=== PATIENT | male | born 1990 | race African-American/Black ===

== ENCOUNTER 2018-04-06 21:09 | Emergency (ER) | payer OTHER ==
--- NOTE | 2018-04-06 22:07 | XR ---
EXAMINATION TYPE: XR ankle complete LT DATE OF EXAM: 04/06/2018 CLINICAL HISTORY: Left ankle pain after fall injury today. TECHNIQUE: Frontal, lateral and oblique images of the left ankle are obtained. COMPARISON: None. FINDINGS: There is no acute fracture/dislocation evident in the left ankle. Tiny superior calcaneal spur is incidentally seen. The ankle mortise appears within normal limits. The overlying soft tissue appears unremarkable. IMPRESSION: There is no acute fracture or dislocation in the left ankle.
--- NOTE | 2018-04-06 22:54 | ED ---
Lower Extremity Injury HPI - General Chief Complaint: Extremity Injury, Lower Stated Complaint: [facility] left ankle injury Time Seen by Provider: 04/06/18 22:28 Source: patient, family Mode of arrival: ambulatory Limitations: no limitations - History of Present Illness MD Complaint: ankle injury -: hour(s) Injury: Ankle: Left Type of Injury: inversion Place: work Severity: mild Improves With: nothing Worsens With: weight bearing Context: walking - Related Data Previous Rx's Medication Instructions Recorded Ibuprofen 800 mg PO TID #20 tablet 04/06/18 Allergies Allergy/AdvReac Type Severity Reaction Status Date / Time No Known Allergies Allergy Verified 04/06/18 23:04 Review of Systems ROS Statement: Those systems with pertinent positive or pertinent negative responses have been documented in the HPI. ROS Other: All systems not noted in ROS Statement are negative. Constitutional: Denies: fever, chills, weakness Musculoskeletal: Reports: as per HPI, arthralgia Past Medical History Past Medical History: No Reported History History of Any Multi-Drug Resistant Organisms: None Reported Additional Past Surgical History / Comment(s): chest tube Past Psychological History: No Psychological Hx Reported Smoking Status: Current every day smoker Past Alcohol Use History: None Reported Past Drug Use History: None Reported General Exam Limitations: no limitations General appearance: alert, in no apparent distress Left Knee exam: Present: normal inspection, full ROM. Absent: tenderness, swelling Lower Leg exam: Present: normal inspection, full ROM. Absent: tenderness, swelling Ankle exam: Present: normal inspection, full ROM, tenderness. Absent: swelling , abrasion, laceration, ecchymosis, deformity, dislocation Foot/Toe exam: Present: normal inspection, full ROM. Absent: tenderness, swelling Neurovascular tendon exam: Present: no vascular compromise Gait: observed and normal Course Vital Signs 04/06/18 04/07/18 21:47 00:37 Temperature 98.3 F 97.7 F Pulse Rate 81 78 Respiratory 20 18 Rate Blood Pressure 146/88 158/80 O2 Sat by Pulse 99 98 Oximetry Disposition Clinical Impression: Ankle sprain Disposition: HOME SELF-CARE Condition: Good Instructions (If sedation given, give patient instructions): Ankle Sprain (ED) Prescriptions: Ibuprofen 800 mg PO TID #20 tablet Is patient prescribed a controlled substance at d/c from ED?: No Referrals: None,Stated [Primary Care Provider] - 1-2 days
[2018-04-07] MEDS ORDERED: IBUPROFEN 400 MG TAB PO STA
[2018-04-07 00:38] VITALS: BP 158/80; PULSE 78; RESP 18; TEMP 97.7
== END 2018-04-07 00:38 | disposition home or self-care (01) ==
LOC: EC 21:09
DX: S93.401A Sprain of unspecified ligament of right ankle, initial encounter (principal); F17.200 Nicotine dependence, unspecified, uncomplicated; W01.0XXA Fall on same level from slipping, tripping and stumbling without subsequent striking against object, initial encounter; Y93.01 Activity, walking, marching and hiking; Y92.69 Other specified industrial and construction area as the place of occurrence of the external cause; Y99.0 Civilian activity done for income or pay
CPT/HCPCS: 99283

== ENCOUNTER → 2018-04-08 | Outpatient (CLI) | payer OTHER ==
--- NOTE | 2018-04-08 13:46 | XR ---
Left knee HISTORY: Trauma and pain 3 views of the left knee Bone mineralization, joint spaces and alignment are maintained. Suprapatellar increased density may b e indicate joint effusion. Ossific density present within the distal patellar tendon is well-corticat ed and not felt likely to be acute. IMPRESSION: No acute fracture or dislocation.
--- NOTE | 2018-04-08 13:49 | XR ---
Left foot HISTORY: Trauma and pain 3 views of the left foot Bone mineralization, joint spaces and alignment are maintained. Some spurring suspected tibiotalar sharmila int. Enthesophyte present at the insertion of the Achilles tendon. IMPRESSION: No fracture or dislocation.
== END | disposition home or self-care (01) ==
LOC: RADXRMAIN 13:02
PROVIDERS: ATTEND Emergency Medicine
DX: S83.92XA Sprain of unspecified site of left knee, initial encounter (principal); S93.602A Unspecified sprain of left foot, initial encounter

== ENCOUNTER → 2018-04-13 | Outpatient (CLI) | payer OTHER ==
--- NOTE | 2018-04-13 15:17 | XR ---
Left ankle HISTORY: Pain for 1 week, trauma 04/06/2017 3 views of the left ankle correlated to prior exam 04/06/2017 There is no interval change. Spurring present at the tibiotalar joint consistent with osteoarthritis. IMPRESSION: No radiographically apparent fracture or dislocation, follow-up as indicated. Ankle MRI m ay be of benefit.
== END | disposition home or self-care (01) ==
LOC: RADXRMAIN 14:46
PROVIDERS: ATTEND Emergency Medicine
DX: S93.402D Sprain of unspecified ligament of left ankle, subsequent encounter (principal)

== ENCOUNTER → 2018-04-15 | Outpatient (CLI) | payer OTHER ==
--- NOTE | 2018-04-17 09:35 | MR ---
MR left ankle HISTORY: Sprain of ligament left ankle, pain and swelling Multiplanar multisequence imaging through the left ankle. Correlation plain film 04/13/2018 Mild osteoarthritic changes noted, there is spurring at the tibiotalar joint. Small ankle joint effus ion is present. Plantar aponeurosis, Achilles tendon are intact. Bone marrow signal is maintained. Th ere is no plaque peroneal longus and brevis tendons, flexor and extensor tendons are intact. Some flu id present along the tibialis posterior tendon compatible with tenosynovitis. Subcutaneous edema pres ent along the dorsum of foot laterally and at the level of the ankle. No evident ligamentous disrupti on. No evident tarsal coalition. There is some slight thickening of the superomedial spring ligament with intermediate signal which could possibly represent chronic versus low-grade sprain, coronal prot on density image 8, axial proton density image 19. The peroneal muscles show some minimal patchy incr eased density possibly related to mild strain or reactive to altered biomechanics. IMPRESSION: Soft tissue swelling. Mild osteoarthritic change at the anterior ankle joint could contri bute to some mechanical symptoms of anterior impingement. Findings in the spring ligament as describe d. Additional findings above.
== END ==
LOC: RADMRIMAIN 19:09
PROVIDERS: ATTEND Emergency Medicine
DX: M19.072 Primary osteoarthritis, left ankle and foot (principal)

== ENCOUNTER 2019-01-07 16:46 | Emergency (ER) | payer BC, OTHER ==
[2019-01-07 17:01] VITALS: TEMP 98.3
[2019-01-07] MEDS ORDERED: DEXAMETHASONE SOD PHOSPHATE 10 MG/ML 1 ML VIAL IV STA (17:23)
[2019-01-07] MEDS ORDERED: KETOROLAC 30 MG/ML 1 ML VIAL IVP STA (17:23)
[2019-01-07] MEDS ORDERED: AMPICILLIN-SULBACTAM 3 GM in SODIUM CHLORIDE 0.9% 100 ML IVPB STA (17:23)
[2019-01-07] MEDS ORDERED: SODIUM CHLORIDE 0.9% 1,000 ML IV STA (17:23)
--- NOTE | 2019-01-07 17:25 | ED ---
Headache HPI - General Chief Complaint: Headache Stated Complaint: Headache, chills Time Seen by Provider: 01/07/19 17:02 Source: RN notes reviewed, old records reviewed Mode of arrival: ambulatory Limitations: no limitations - History of Present Illness Initial Comments: This is a 28-year-old male the ER for evaluation patient resents left-sided facial swelling and pain after recent tooth extraction. Occasional fevers and chills no nausea vomiting and also complaining of headache. Patient has no ear pain. No significant history of similar complaint. No other prior history of dental infection and facial infections. Patient denying pain currently. He is on current antibiotics Complaint: headache, other (sinus pain, recent tooth extraction) -: hour(s) Onset Description: gradual Location: other (maxillary) Severity: moderate Severity scale (1-10): 4 Consistency: constant Improves With: nothing Worsens With: none Associated Symptoms: fever Other Symptoms: other (no NV) Treatments Prior to Arrival: none - Related Data Previous Rx's Medication Instructions Recorded Ibuprofen 800 mg PO TID #20 tablet 04/06/18 Amoxic-Pot Clav 875-125Mg 1 tab PO Q12HR #28 tablet 01/07/19 [Augmentin 875-125] Allergies Allergy/AdvReac Type Severity Reaction Status Date / Time No Known Allergies Allergy Verified 01/07/19 17:01 Review of Systems ROS Statement: Those systems with pertinent positive or pertinent negative responses have been documented in the HPI. ROS Other: All systems not noted in ROS Statement are negative. Past Medical History Past Medical History: Hypertension History of Any Multi-Drug Resistant Organisms: None Reported Additional Past Surgical History / Comment(s): chest tube Past Psychological History: No Psychological Hx Reported Smoking Status: Current every day smoker Past Alcohol Use History: None Reported Past Drug Use History: Marijuana General Exam Limitations: no limitations General appearance: alert, in no apparent distress Head exam: Present: atraumatic, normocephalic, normal inspection Eye exam: Present: normal appearance, PERRL, EOMI. Absent: scleral icterus, conjunctival injection, periorbital swelling ENT exam: Present: normal exam, normal oropharynx (maxillary sinus tenderness), mucous membranes moist Neck exam: Present: normal inspection. Absent: tenderness, meningismus, lymphadenopathy Respiratory exam: Present: normal lung sounds bilaterally. Absent: respiratory distress, wheezes, rales, rhonchi, stridor Cardiovascular Exam: Present: regular rate, normal rhythm, normal heart sounds. Absent: systolic murmur, diastolic murmur, rubs, gallop, clicks GI/Abdominal exam: Present: soft, normal bowel sounds. Absent: distended, tenderness, guarding, rebound, rigid Extremities exam: Present: normal inspection, full ROM, normal capillary refill. Absent: tenderness, pedal edema, joint swelling, calf tenderness Back exam: Present: normal inspection Neurological exam: Present: alert, oriented X3, CN II-XII intact Psychiatric exam: Present: normal affect, normal mood Skin exam: Present: warm, dry, intact, normal color. Absent: rash Course Vital Signs 01/07/19 01/07/19 16:58 19:34 Temperature 98.3 F Pulse Rate 61 87 Respiratory 20 18 Rate Blood Pressure 162/102 154/98 O2 Sat by Pulse 99 100 Oximetry - Reevaluation(s) Reevaluation #1: Medical records reviewed Family better with symptomatic care Medical Decision Making - Medical Decision Making 28 male the ER for evaluation of signed sinus pain tooth pain and tenderness after [place] extraction. CT shows no definite abscess he does have sinusitis and will discharged home to continue antibiotics - Lab Data Result diagrams: 01/07/19 17:47 01/07/19 17:47 Lab Results 01/07/19 01/07/19 Range/Units 17:47 17:47 WBC 6.6 (3.8-10.6) k/uL RBC 4.97 (4.30-5.90) m/uL Hgb 15.3 (13.0-17.5) gm/dL Hct 46.1 (39.0-53.0) % MCV 92.6 (80.0-100.0) fL MCH 30.7 (25.0-35.0) pg MCHC 33.1 (31.0-37.0) g/dL RDW 14.1 (11.5-15.5) % Plt Count 219 (150-450) k/uL Neutrophils % 68 % Lymphocytes % 25 % Monocytes % 4 % Eosinophils % 1 % Basophils % 1 % Neutrophils # 4.5 (1.3-7.7) k/uL Lymphocytes # 1.6 (1.0-4.8) k/uL Monocytes # 0.3 (0-1.0) k/uL Eosinophils # 0.1 (0-0.7) k/uL Basophils # 0.1 (0-0.2) k/uL Sodium 140 (137-145) mmol/L Potassium 4.5 (3.5-5.1) mmol/L Chloride 106 (98-107) mmol/L Carbon Dioxide 28 (22-30) mmol/L Anion Gap 6 mmol/L BUN 12 (9-20) mg/dL Creatinine 1.01 (0.66-1.25) mg/dL Est GFR (CKD-EPI)AfAm >90 (>60 ml/min/1.73 sqM) Est GFR (CKD-EPI)NonAf >90 (>60 ml/min/1.73 sqM) Glucose 92 (74-99) mg/dL Calcium 9.6 (8.4-10.2) mg/dL Phosphorus 3.4 (2.5-4.5) mg/dL Magnesium 2.0 (1.6-2.3) mg/dL Total Bilirubin 0.4 (0.2-1.3) mg/dL AST 30 (17-59) U/L ALT 32 (21-72) U/L Alkaline Phosphatase 79 (38-126) U/L Creatine Kinase 537 H (55-170) U/L Total Protein 7.8 (6.3-8.2) g/dL Albumin 4.3 (3.5-5.0) g/dL - EKG Data -: EKG Interpreted by Me (EKG shows sinus rhythm rate of 63, W[place] 166, QRS 96, QTc 380) Disposition Clinical Impression: Maxillary sinusitis, acute Disposition: HOME SELF-CARE Condition: Good Instructions (If sedation given, give patient instructions): Sinusitis (ED) Prescriptions: Amoxic-Pot Clav 875-125Mg [Augmentin 875-125] 1 tab PO Q12HR #28 tablet Is patient prescribed a controlled substance at d/c from ED?: No Referrals: None,Stated [Primary Care Provider] - 1-2 days
[2019-01-07 17:54] LABS: Basophils # (A) 0.1 k/uL (0-0.2); Basophils % (A) 1 %; Eosinophils # (A) 0.1 k/uL (0-0.7); Eosinophils % (A) 1 %; HCT 46.1 % (39.0-53.0); HGB 15.3 gm/dL (13.0-17.5); Lymphocytes # (A) 1.6 k/uL (1.0-4.8); Lymphocytes % (A) 25 %; MCH 30.7 pg (25.0-35.0); MCHC 33.1 g/dL (31.0-37.0); MCV 92.6 fL (80.0-100.0); Mean Platelet Volume 6.5; Monocytes # (A) 0.3 k/uL (0-1.0); Monocytes % (A) 4 %; Neutrophils # (A) 4.5 k/uL (1.3-7.7); Neutrophils % (A) 68 %; Platelet Count 219 k/uL (150-450); RBC 4.97 m/uL (4.30-5.90); RDW 14.1 % (11.5-15.5); WBC 6.6 k/uL (3.8-10.6)
[2019-01-07 18:10] LABS: ALT 32 U/L (21-72); AST 30 U/L (17-59); African American GFR (CKD) >90 (>60 ml/min/1.73 sqM); Albumin 4.3 g/dL (3.5-5.0); Alkaline Phosphatase 79 U/L (38-126); Anion Gap 6 mmol/L; Blood Urea Nitrogen 12 mg/dL (9-20); Calcium 9.6 mg/dL (8.4-10.2); Carbon Dioxide 28 mmol/L (22-30); Chloride 106 mmol/L (98-107); Creatine Kinase 537 U/L (55-170); Glucose 92 mg/dL (74-99); Phosphorus 3.4 mg/dL (2.5-4.5); Potassium 4.5 mmol/L (3.5-5.1); Sodium 140 mmol/L (137-145); Total Bilirubin 0.4 mg/dL (0.2-1.3); Total Protein 7.8 g/dL (6.3-8.2)
--- NOTE | 2019-01-07 19:17 | CT ---
EXAMINATION TYPE: CT facial bones w con DATE OF EXAM: 01/07/2019 COMPARISON: None HISTORY: Pt stated he had a tooth extracted from the LT upper jaw last week, c/o swelling, headaches, pain since CT DLP: 728.3 mGycm Automated exposure control for dose reduction was used. CONTRAST: CT scan of the facial bones is performed with IV Contrast, patient injected with 100 mL of Isovue 300 . TECHNIQUE: CT scan of the sinuses is performed without contrast, axial images are obtained, coronal r eformatted images are also reviewed. FINDINGS: There is some mucosal thickening left maxillary sinus. There is small soft tissue cavity re lated to tooth extraction of left upper molar. The orbital margins are intact. There is no evidence o f a fracture. Zygomatic arches appear normal. There is no retro-orbital mass. The mandibular ring is intact. Temporomandibular joints are intact. IMPRESSION: Left maxillary sinusitis. No evidence of osteomyelitis. No fracture seen.
[2019-01-07 19:35] VITALS: BP 154/98; PULSE 87; RESP 18
== END 2019-01-07 19:40 | disposition home or self-care (01) ==
LOC: EC 16:46
DX: J01.00 Acute maxillary sinusitis, unspecified (principal); I10 Essential (primary) hypertension; F17.200 Nicotine dependence, unspecified, uncomplicated
CPT/HCPCS: 36415; 93005; 80053; 82550; 83735; 84100; 85025; 70487; 99285; 96365; 96375 ×2; 96361; J1100; J1885; J0295; Q9967